=== PATIENT | female | born 1950 | race Two or more races ===

== ENCOUNTER → 2024-12-09 | Outpatient (CLI) | payer MEDICARE, MEDICAID, SELFPAY ==
--- NOTE | 2024-12-09 10:49 | XR_ITS ---
Examination: Left knee 4 views TECHNIQUE: AP oblique lateral axial left knee 4 views Date and time: December 09, 2024 1116 hours INDICATIONS: History left knee replacement 2 years ago. FINDINGS: Moderate osteopenia Total left knee arthroplasty. Satisfactory alignment. No patellar dislocation IMPRESSION: Total left knee arthroplasty with satisfactory alignment
== END | disposition home or self-care (01) ==
LOC: COPL 10:41
PROVIDERS: PCP Family Medicine; Referring Provider Orthopaedic Surgery Adult Reconstructive Orthopaedic Surgery; Visit Provider Orthopaedic Surgery Adult Reconstructive Orthopaedic Surgery
DX: M25.562 Pain in left knee (principal); Z96.652 Presence of left artificial knee joint
CPT/HCPCS: 73564

== ENCOUNTER 2024-12-17 13:37 | Outpatient (AMB) | payer MEDICARE, MEDICAID, SELFPAY ==
--- NOTE | 2024-12-17 14:12 | PD.ORTHCLVIS ---
Vital signs 12/17/24 14:13 Height 1.52 m Height Method Stated Weight 73.255 kg Weight Measurement Method Standing Scale BMI 31.5 BP 124/78 Blood Pressure Source Automatic Cuff Blood Pressure Location Left Upper Arm Position Sitting Respiration 19 Pulse 68 Pulse Source Monitor Temp 96.8 F Temp Source Temporal Artery Scan Pulse Oximetry (%) 95 Oxygen Delivery Method Room Air Med/Allergies Allergies & Medications Allergies tramadol Allergy (Mild, Verified 12/17/24 14:18) Ithcing Medication Reconciliation baclofen 20 mg tablet 20 mg PO BID 09/08/21 [History Confirmed 12/17/24] calcium 500 mg (carb,gluconate)-magnesium 250 mg (gluc,oxide) tablet (Calcium Magnesium) 1 tab PO DAILY 09/08/21 [History Confirmed 12/17/24] gabapentin 100 mg capsule 100 mg PO QDAY 09/08/21 [History Confirmed 12/17/24] celecoxib 100 mg capsule (Celebrex) 100 mg PO BID 08/09/22 [History Confirmed 12/17/24] Exam Exam Patient is in no acute distress and is cooperative with the examination today. Breathing is nonlabored. In no respiratory distress. Bilateral extremities were evaluated and demonstrates sensation intact to light touch. Palpable pedal pulses are present. No significant edema is present. Bilateral hips were examined. The patient has no pain with log roll of the hips. Internal rotation to 30 degrees and external rotation to 30 degrees is painless. Negative FADIR. Right knee was examined today. The right knee is in reasonable alignment. Range of motion is from 0-120 degrees. Knee is stable to varus and valgus as well as AP translation with <5mm. Patient has a negative McMurrays. There is no pain with patellofemoral compression and no crepitus noted. The knee is nontender to palpation. Left knee incision is clean dry intact. Range of motion is 0 to 110 degrees. Knee feels stable varus valgus stress as well as AP translation. We have old x-rays in 2018 and a new cup was placed at this time. He was placed all the way to the medial wall. almost like to be a dual mobility construct.Right hip x-rays reviewed by me today. This demonstrates I do not see any evidence of radiolucent lines or any evidence of loosening. She has very clear degenerative spine disease as well on these films Xrays demonstrate a cmeneted total knee replacement in good alignment and position Assessment and Plan Problem List (1) History of total left knee replacement: Status: Acute Plan: Patient is a 74-year-old female with a history of a left total knee replacement. She reports she is doing well. She has minimal pain. Her xrays look good. We will have her followup in 2 years (2) Acute pain of right hip: Status: Acute Advanced Care Planning Discussion Advance care planning discussed with:: patient Office Procedures GNS Level of Care Nursing/Assessment Patient Status: Established Patient Nursing Assessment/Reassesment: Medication Reconciliation, Update PMH in EMR and Vital Signs Coordination of Care: Complex Care and Chronic Disease 1-5, Education Complex Pt/Fam, Consent,records obtained, informed consent, Results/Orders obtained and Staff clarify orders Special Needs: Language special needs Established Patient Charge Established Patient Point Assignment: 95 Established Patient Point Charge: EP Level 3 (80-115) MA Intake Visit Data Collection New Patient or Established: Established Patient (seen at [facility] within 3 years) Reason for Visit:: 3 YEAR L TKA F/U Seen by Clinical Staff ONLY (RN/MA): No Salesperson Floor Coverings Required: Yes PCP or OBGYN visit in last 3 months: Yes Hx Now: No Do You Feel Safe at Home: Yes Authorities Contacted: N/A Questionairres Past Medical History Past Medical History Have you ever been diagnosed with any of the following: Neurological Problems Seizures: No Cardiology Problems Hypercholesterolemia: No Congestive Heart Failure: No Edema: No Cellulitis: No Hypertension: No Varicose Veins: No Respiratory Problems Chronic Obstructive Pulmonary Disease (COPD): No Pneumonia: No Tuberculosis: No Sleep Apnea: No Smoking: No Smoking Exposure: No Stomache/Intestinal Problems Hepatitis: No Genital/Urinary Problems Renal Disease: No Reproductive Problems Endometriosis: No Genital Herpes: No Gonorrhea: No Pelvic Inflammatory Disease: No Previous Pregnancies: Yes () Syphilis: No Uterine Prolapse: No Musculoskeletal Problems Arthritis: Yes Carpal Tunnel Syndrome: No Head,Eye,Nose,Throat Problems Cataracts: No Glaucoma: No Blind: No Retinal Detachment: No Macular Degeneration: No Chronic Ear Infections: No Deafness: No Eye Prosthesis: No Endocrine Problems Diabetes Mellitus Type 1: No Diabetes Mellitus Type 2: No Other Problems Hospitalization: No Down Syndrome: No Developmental Delay: No Shingles: No Falls: No Blood Transfusions: No Blood Transfusion Reaction: No Anesthesia Reactions: No Organ Transplant: No Chemotherapy: No Radiation Therapy: No Hyperbaric Therapy: No MRSA: No VRSA: No Vancomycin-Resistant Enterococci: No Human Immunodeficiency Virus (HIV): No Chicken Pox: Yes Measles: Yes Mumps: No Rubella ([place] Measles): No Pertussis: No Clostridium Difficile: No Cancer: No Surgical History Carotid Endarterectomy: No Coronary Artery Bypass Graft: No Valve Replacement: No Total Knee Replacement: Yes Hysterectomy: Yes Pacemaker: No Subjective Visit Visit for: follow up visit and knee Immunization / Flu Flu Vaccine in the Last 12 Months: No Flu Vaccine Exclusion Criteria: No Exclusion Criteria History of Present Illness Chief complaint: left knee Batool is a 73-year-old female who is status post a left total knee replacement 2 years ago. She reports that she is doing well. She has almost no pain. There is still some numbness and tingling there. She reports she had a right hip replacement that she would like to get checked out. She has some pain when she bends down. She reports the pain is improving Pain Pain level (0-10): 0 Pain quality: tingling Associated signs & symptoms: numbness Ambulatory data Ambulatory device: none Treatments Improvement with previous injections: No Improvement with PT: No Improvement with NSAIDS: no Review of Systems Review of Systems: All systems negative unless otherwise noted in HPI.
[2024-12-17 14:13] VITALS: BP 124/78; PULSE 68; RESP 19; TEMP 36; O2SAT 95; BMI 31.5
== END 2024-12-17 14:38 | disposition home or self-care (01) ==
LOC: HODSRG 13:37
PROVIDERS: PCP Family Medicine; Referring Provider Family Medicine; Supervising Provider Orthopaedic Surgery Adult Reconstructive Orthopaedic Surgery; Visit Provider Orthopaedic Surgery Adult Reconstructive Orthopaedic Surgery
DX: Z96.652 Presence of left artificial knee joint (principal); M25.551 Pain in right hip; R20.0 Anesthesia of skin; R20.2 Paresthesia of skin
CPT/HCPCS: 99213; G0463